=== PATIENT | male | born 1960 | race Hispanic/Latino ===

== ENCOUNTER 2021-06-23 07:40 | Inpatient (IN) | payer OTHER, SELFPAY ==
[2021-06-23 08:25] LABS: Absolute Lymphocytes (CBC) 0.3 K/uL (0.7-4.9); Basophils % 0.6 % (0-1.3); Hematocrit 40.3 % (39.6-49.0); Lymphocytes % 5.4 % (15.3-44.8); MPV 7.6 fL (7.6-11.3); RBC Red Blood Cell Count 4.44 M/uL (4.33-5.43)
[2021-06-23] MEDS ORDERED: NA CHLORIDE 0.9% 1,000 ML ONE ×2 (08:32→15:42)
[2021-06-23 08:44] LABS: BUN Blood Urea Nitrogen 14 mg/dL (7-18); Bicarbonate 24 mmol/L (21-32); Creatine Phosphokinase 74 U/L (39-308); Glucose Level 118 mg/dL (74-106); Magnesium 2.1 mg/dL (1.8-2.4); Potassium 3.6 mmol/L (3.5-5.1); Sodium Level 136 mmol/L (136-145); Troponin (Emerg Dept Use Only) < 0.02 ng/mL (0.0-0.045)
--- NOTE | 2021-06-23 08:56 | RAD REPORT ---
EXAM DESCRIPTION: CT - Head Brain Wo Cont - 06/23/2021 8:39 am CLINICAL HISTORY: near syncope COMPARISON: No comparisons TECHNIQUE: All CT scans are performed using dose optimization technique as appropriate and may inclu de automated exposure control or mA/KV adjustment according to patient size. FINDINGS: No intracranial hemorrhage, hydrocephalus or extra-axial fluid collection.No areas of brai n edema or evidence of midline shift. Trace maxillary sinus thickening. The calvarium is intact. IMPRESSION: No acute intracranial abnormality.
--- NOTE | 2021-06-23 09:18 | EDPHYS ---
Physician Documentation [facility] Name: Jin Rubio Age: 61 yrs Sex: Male : 1960 Arrival Date: 06/23/2021 Time: 07:43 Bed 20 Private MD: ED Physician Maulik Zamorano HPI: 06/23 08:08 This 61 yrs old Male presents to ER via Ambulatory with complaints of Near rn Syncope. 08:08 The patient has experienced near-syncope, almost passed out, felt dizzy, felt faint. rn Onset: The symptoms/episode began/occurred just prior to arrival. Duration: This was a single episode, that lasted 30 second(s). Context: the episode(s) was witnessed, by co-worker(s), occurred at work, occurred while the patient was standing, Just prior to the episode the patient experienced no apparent symptoms. Associated injury: The patient did not suffer any apparent associated injury. Associated signs and symptoms: Pertinent positives: diaphoresis, dizziness, lightheadedness, Pertinent negatives: abdominal pain, chest pain, confusion, headache, seizure, shortness of breath, vomiting. Current symptoms: Currently, the patient is not experiencing any symptoms. The patient has not experienced similar symptoms in the past. The patient has not recently seen a physician. Patient reports was standing at work prior to arrival, felt dizzy and lightheaded, almost passed out. Did not have syncopal episode. Denies any pain to chest or abdomen prior to episode. Lasted less than 30 seconds, went to the medical at work and was checked out, normal vital signs and symptoms resolved. Currently asymptomatic. Denies any chronic medical problems. Nobody in family with pacemaker. Is an occasional smoker. Reports decreased appetite and feeling dehydrated over the last few days but denies any fever or loss of taste and smell or cough.. Historical: - Allergies: 07:53 Aspirin; jl7 - Home Meds: 07:53 None [Active]; jl7 - PMHx: 07:53 None; jl7 - PSHx: 07:53 None; jl7 - Immunization history:: Adult Immunizations not up to date, Client reports having NOT received the Covid vaccine. - Social history:: Smoking status: Patient denies any tobacco usage or history of. - Family history:: not pertinent. - Hospitalizations: : No recent hospitalization is reported. - Code Status:: Full code. ROS: 08:08 Constitutional: Negative for fever, chills, and weight loss, Eyes: Negative for injury, rn pain, redness, and discharge, Neck: Negative for injury, pain, and swelling, Cardiovascular: Negative for chest pain, palpitations, and edema, Respiratory: Negative for shortness of breath, cough, wheezing, and pleuritic chest pain, Abdomen/GI: Negative for abdominal pain, nausea, vomiting, diarrhea, and constipation, Back: Negative for injury and pain, MS/Extremity: Negative for injury and deformity, Skin: Negative for injury, rash, and discoloration, Neuro: Negative for headache, numbness, tingling, and seizure. 08:08 All other systems are negative. Exam: 08:08 Constitutional: This is a well developed, well nourished patient who is awake, alert, rn and in no acute distress. Head/Face: Normocephalic, atraumatic. Eyes: Pupils equal round and reactive to light, extra-ocular motions intact. Lids and lashes normal. Conjunctiva and sclera are non-icteric and not injected. Cornea within normal limits. Periorbital areas with no swelling, redness, or edema. ENT: Dry mucous membranes Neck: Trachea midline, no masses palpated, and no cervical lymphadenopathy. Supple, full range of motion without nuchal rigidity, or vertebral point tenderness. No Meningismus. Cardiovascular: Regular rate and rhythm. No pulse deficits. Respiratory: Speaking full sentences, unlabored. No increased work of breathing, no retractions or nasal flaring. Abdomen/GI: Soft, non-tender Skin: Warm, dry MS/ Extremity: Pulses equal, no cyanosis. Neuro: Awake and alert, GCS 15, oriented to person, place, time, and situation. Cranial nerves II-XII grossly intact. Motor strength 5/5 in all extremities. Sensory grossly intact. Cerebellar exam normal. 08:08 ECG was reviewed by the Attending Physician. Vital Signs: 07:51 BP 109 / 71; Pulse 80; Resp 17; Temp 98.1; Pulse Ox 98% on R/A; Weight 108.86 kg; jl7 Height 5 ft. 10 in. (177.80 cm); Pain 0/10; 08:16 BP 106 / 62; Pulse 69; Resp 17; Temp 98.1; Pulse Ox 98% on R/A; kh1 09:41 BP 104 / 68; Pulse 71; Resp 20; Pulse Ox 98% on R/A; kh1 07:51 Body Mass Index 34.44 (108.86 kg, 177.80 cm) jl7 [place] Coma Score: 08:19 Eye Response: spontaneous(4). Verbal Response: oriented(5). Motor Response: obeys kh1 commands(6). Total: 15. MDM: 07:43 Patient medically screened. rn 08:18 ED course: Patient became diaphoretic in room, heart rate dropped into the 40s, rn slightly irregular with occasional PVC, but appeared to be sinus bradycardia. Repeat EKG obtained and symptoms and bradycardia had resolved. Patient back to baseline without symptoms.. 09:16 Differential Diagnosis: cardiac arrhythmia, emotional response, idiopathic syncope, rn vasovagal episode, dehydration, electrolyte disorder. Data reviewed: vital signs, nurses notes, lab test result(s), EKG. 09:17 Data interpreted: employee operations examiner: rate is 69 beats/min, rhythm is normal sinus rhythm, rn regular, with no ectopy, Interpretation: normal rate, normal rhythm, Pulse oximetry: on room air is 98 %. Interpretation: normal. Counseling: I had a detailed discussion with the patient and/or guardian regarding: the historical points, exam findings, and any diagnostic results supporting the discharge/admit diagnosis, lab results, radiology results, the need for further work-up and treatment in the hospital. Response to treatment: the patient's symptoms have markedly improved after treatment, and as a result, I will admit patient. Admission orders: after a detailed discussion of the patient's condition and case, the admit orders are written by me. 06/23 07:59 Order name: Basic Metabolic Panel; Complete Time: 08:56 rn 06/23 07:59 Order name: CBC with Diff; Complete Time: 09:35 rn 06/23 07:59 Order name: CPK; Complete Time: 08:56 rn 06/23 07:59 Order name: Magnesium; Complete Time: 08:56 rn 06/23 07:59 Order name: Troponin (emerg Dept Use Only); Complete Time: 08:56 rn 06/23 07:59 Order name: CT Head Brain wo Cont; Complete Time: 08:56 rn 06/23 08:42 Order name: Manual Differential; Complete Time: 09:35 EDMS 06/23 09:36 Order name: SARS-COV-2 RT PCR; Complete Time: 09:43 EDMS 06/23 14:38 Order name: Troponin I EDKY 06/23 14:50 Order name: Creatine Phosphokinase EDKY 06/23 14:50 Order name: Lipid Profile EDKY 06/23 14:50 Order name: T4 Free EDKY 06/23 14:50 Order name: Thyroid Stimulating Hormone EDKY 06/23 07:59 Order name: EKG; Complete Time: 08:00 rn 06/23 07:59 Order name: Cardiac monitoring; Complete Time: 08:08 rn 06/23 07:59 Order name: EKG - Nurse/Tech; Complete Time: 08:08 rn 06/23 07:59 Order name: IV Saline Lock; Complete Time: 08:08 rn 06/23 07:59 Order name: Labs collected and sent; Complete Time: 08:08 rn 06/23 07:59 Order name: O2 Per Protocol; Complete Time: 08:09 rn 06/23 07:59 Order name: O2 Sat Monitoring; Complete Time: 08:09 rn 06/23 10:34 Order name: Echo with Doppler EDKY 06/23 13:04 Order name: US EDKY EC:08 Rate is 65 beats/min. Rhythm is regular. QRS [place] is Normal. [place] interval is normal. QRS rn interval is normal. QT interval is normal. No Q waves. T waves are Normal. No ST changes noted. Clinical impression: Normal ECG. Interpreted by me. Reviewed by me. Administered Medications: 08:05 Drug: NS 0.9% 1000 ml Route: IV; Rate: 1000 ml; Site: right hand; [facility] Disposition Summary: 06/23/21 09:18 Hospitalization Ordered Hospitalization Status: Observation rn Provider: Cole Zamorano rn Location: Telemetry/MedSurg (observation) rn Condition: Stable rn Problem: new rn Symptoms: have improved rn Bed/Room Type: Standard rn Room Assignment: 415(06/23/21 16:13) ss Diagnosis - Syncope Near rn - Bradycardia, unspecified rn - SARS-associated coronavirus as the cause of diseases classified elsewhere rn Forms: - Medication Reconciliation Form rn - SBAR form rn Signatures: Dispatcher [employer] [facility] Zamorano, Maulik, Galilea Pugh MD, rn, RN RN ss Maris Javier RN RN jl7 Mary Colon [facility] Corrections: (The following items were deleted from the chart) 08:28 08:00 CORONAVIRUS+Z ordered. EDMS EDMS 16:13 09:18 nick shi
--- NOTE | 2021-06-23 09:18 | ER ---
Nurse's Notes [facility] Name: Jin Rubio Age: 61 yrs Sex: Male : 1960 Arrival Date: 06/23/2021 Time: 07:43 Bed 20 Private MD: Diagnosis: Syncope Near;Bradycardia, unspecified;SARS-associated coronavirus as the cause of diseases classified elsewhere Presentation: 06/23 07:51 Chief complaint: Patient states: Standing at morning meeting and almost passed out, jl7 on-site medical reports pt was diaphoretic, initial BP 90/60, BGL 117. Coronavirus screen: Vaccine status: Patient reports being unvaccinated. At this time, the client does not indicate any symptoms associated with coronavirus-19. Ebola Screen: No symptoms or risks identified at this time. Initial Sepsis Screen: Does the patient meet any 2 criteria? No. Patient's initial sepsis screen is negative. Does the patient have a suspected source of infection? No. Patient's initial sepsis screen is negative. Risk Assessment: Do you want to hurt yourself or someone else? Patient reports no desire to harm self or others. Onset of symptoms was June 23, 2021. 07:51 Method Of Arrival: Ambulatory [facility] 07:51 Acuity: LAKESHIA 3 jl7 Triage Assessment: 07:53 General: Appears in no apparent distress. uncomfortable, Behavior is calm, cooperative, jl7 appropriate for age. Pain: Denies pain. Historical: - Allergies: 07:53 Aspirin; jl7 - Home Meds: 07:53 None [Active]; jl7 - PMHx: 07:53 None; jl7 - PSHx: 07:53 None; jl7 - Immunization history:: Adult Immunizations not up to date, Client reports having NOT received the Covid vaccine. - Social history:: Smoking status: Patient denies any tobacco usage or history of. - Family history:: not pertinent. - Hospitalizations: : No recent hospitalization is reported. - Code Status:: Full code. Screenin:19 Abuse screen: Denies threats or abuse. Nutritional screening: No deficits noted. kh1 Tuberculosis screening: No symptoms or risk factors identified. Fall Risk IV access (20 points). Assessment: 08:19 General: Appears uncomfortable, Behavior is calm, cooperative, appropriate for age, kh1 Reports diaphoresis Denies. Cardiovascular: Reports diaphoresis, lightheadedness, Denies chest pain, shortness of breath, 09:41 Reassessment: Patient appears in no apparent distress at this time. No changes from 1 previously documented assessment. Patient and/or family updated on plan of care and expected duration. Pain level reassessed. Patient is alert, oriented x 3, equal unlabored respirations, skin warm/dry/pink. 11:12 Reassessment: Patient appears in no apparent distress at this time. No changes from [facility] previously documented assessment. Patient and/or family updated on plan of care and expected duration. Pain level reassessed. Patient is alert, oriented x 3, equal unlabored respirations, skin warm/dry/pink. awaiting admit orders. VSS. Vital Signs: 07:51 BP 109 / 71; Pulse 80; Resp 17; Temp 98.1; Pulse Ox 98% on R/A; Weight 108.86 kg; jl7 Height 5 ft. 10 in. (177.80 cm); Pain 0/10; 08:16 BP 106 / 62; Pulse 69; Resp 17; Temp 98.1; Pulse Ox 98% on R/A; kh1 09:41 BP 104 / 68; Pulse 71; Resp 20; Pulse Ox 98% on R/A; kh1 07:51 Body Mass Index 34.44 (108.86 kg, 177.80 cm) jl7 Vitals: 08:19 Cardiac Rhythm Assessment Regular Sinus rhythm Sinus beean. kh1 [place] Coma Score: 08:19 Eye Response: spontaneous(4). Verbal Response: oriented(5). Motor Response: obeys [facility] commands(6). Total: 15. ED Course: 07:43 Patient arrived in ED. mr 07:43 Maulik Zamorano MD is Attending Physician. rn 07:53 Triage completed. jl7 07:53 Arm band placed on right wrist. jl7 08:16 Mary Colon is Primary Nurse. kh1 08:18 Basic Metabolic Panel Sent. kh1 08:18 CPK Sent. kh1 08:18 CBC with Diff Sent. kh1 08:18 Magnesium Sent. kh1 08:18 Troponin (emerg Dept Use Only) Sent. kh1 08:19 Patient has correct armband on for positive identification. Bed in low position. Call [facility] light in reach. Side rails up X2. quality assurance monitor final on. Pulse ox on. NIBP on. 08:19 No provider procedures requiring assistance completed. Inserted saline lock: 20 gauge kh1 in right hand, using aseptic technique. Blood collected. 08:23 Basic Metabolic Panel Sent. kh1 08:23 CBC with Diff Sent. kh1 08:23 CPK Sent. kh1 08:23 Magnesium Sent. kh1 08:23 Troponin (emerg Dept Use Only) Sent. kh1 08:39 CT Head Brain wo Cont In Process Unspecified. EDMS 08:57 Manual Differential Sent. kh1 09:17 Oniel Cabezas DO is Hospitalizing Provider. rn 09:17 Cole Zamorano MD is Hospitalizing Provider. rn Administered Medications: 08:05 Drug: NS 0.9% 1000 ml Route: IV; Rate: 1000 ml; Site: right hand; [facility] Outcome: 09:18 Decision to Hospitalize by Provider. rn 17:09 Patient left the ED. Signatures: Dispatcher [employer] EDNC Brigette Duran mr Maulik Zamorano MD MD rn Smirch, Shelby, RN RN Maris Javier RN RN jl7 Harris, Kecia [facility] Corrections: (The following items were deleted from the chart) 08:28 08:18 CORONAVIRUS+MRBRYN drawn and sent. [facility] EDNC
[2021-06-23 09:31] LABS: Blood Morphology Comment NOT SEEN (NOT SEEN); Platelet Estimate INCR
[2021-06-23 11:30] VITALS: BMI 34.2
[2021-06-23] MEDS ORDERED: HYDROCODONE/APAP 5/325 MG TAB PO PRN (11:52)
[2021-06-23] MEDS ORDERED: ONDANSETRON 4 MG/2 ML VIAL IV PRN (11:56)
[2021-06-23] MEDS ORDERED: ACETAMINOPHEN 500 MG TAB PO PRN (11:56)
[2021-06-23] MEDS ORDERED: PNEUMOCOCCAL VACCINE 0.5 ML IMVAC ONE (12:00)
[2021-06-23] MEDS ORDERED: NA CHLORIDE 0.9% 1,000 ML IV SCH (12:00)
--- NOTE | 2021-06-23 12:09 | P.HP ---
Certification for Inpatient Patient admitted to: Observation With expected LOS: <2 Midnights Patient will require the following post-hospital care: None Practitioner: I am a practitioner with admitting privileges, knowledge of patient current condition, hospital course, and medical plan of care. Services: Services provided to patient in accordance with Admission requirements found in Title 42 Section 412.3 of the Code of Federal Regulations Patient History Date of Service: 06/23/21 Reason for admission: Near Syncope History of Present Illness: Patient is a 61-year-old male with no known past medical history who presents with complaint of near syncope onset today. Patient reported that he was at work standing when he suddenly started feeling dizzy and lightheaded. Patient reported that he almost passed out and had to quickly hold onto something. Patient indicated that the episode lasted for 30 seconds. Patient denies any other signs or symptoms. Symptoms are aggravated or relieved by nothing. Patient decided to present to the hospital for medical evaluation. While in the ER, patient had a similar episode as patient became diaphoretic and his heart rate plummeted into the 40s. Allergies aspirin Allergy (Verified 06/23/21 11:19) Anaphylaxis Home medications list reviewed: No - Past Medical/Surgical History Diabetic: No Past Medical History: Reviewed- Non-Contributory Past Surgical History: Reviewed- Non-Contributory - Family History Family History: Reviewed- Non-Contributory - Social History Smoking Status: Current every day smoker Smoking therapy provided: Yes Patient receptive to therapy: Yes Alcohol use: Yes CD- Drugs: No Place of Residence: Home Review of Systems General: Unremarkable Eyes: Unremarkable ENT: Unremarkable Respiratory: Unremarkable Cardiovascular: Light Headedness, Other Gastrointestinal: Unremarkable Genitourinary: Unremarkable Musculoskeletal: Unremarkable Integumentary: Unremarkable Neurological: Other (Dizziness, near syncope ) Lymphatics: Unremarkable Physical Examination - Physical Exam General: Alert, In no apparent distress, Oriented x3 HEENT: Atraumatic, PERRLA, Mucous membr. moist/pink, EOMI, Sclerae nonicteric Neck: Supple, 2+ carotid pulse no bruit, No LAD, Without JVD or thyroid abnormality Respiratory: Clear to auscultation bilaterally, Normal air movement Cardiovascular: No edema, Regular rate/rhythm, Normal S1 S2 Capillary refill: <2 Seconds Gastrointestinal: Normal bowel sounds, No tenderness Musculoskeletal: No clubbing, No tenderness Integumentary: No rashes, No breakdown Neurological: Normal gait, Normal speech, Normal strength at 5/5 x4 extr, Normal tone, Normal affect Lymphatics: No axilla or inguinal lymphadenopathy External genitalia: Deferred Rectal: Deferred - Studies Laboratory Data (last 24 hrs) 06/23/21 08:10: WBC 6.50, Hgb 13.6, Hct 40.3, Plt Count 604 H 06/23/21 08:10: Sodium 136, Potassium 3.6, BUN 14, Creatinine 0.75, Glucose 118 H, Magnesium 2.1 Assessment and Plan - Plan --Near syncope. Echocardiogram and carotid Doppler pending. Band Saw Filer consulted. Will get some orthostatic vital signs. Continue IV hydration. Will await further recommendations from statue carver. --Bradycardia. Patient became bradycardic in the ER. Echocardiogram pending to assess LV\valvular function and wall motions. Telemetry to monitor for any significant arrhythmia. Band Saw Filer on board. Further management per car diologist. --COVID-19 infection. Patient asymptomatic. Continue contact and droplet precautions. --Class I obesity. Likely secondary to excess calories intake. Patient counseled on diet and exercise therapy. --DVT prophylaxis with Lovenox subQ I have .had discussion about advanced directives with the patient during this hospital admission. Addressed code status and goals of care. Spent more than 30 minutes. Case discussed withpatient and nurse. The following document was completed using voice recognition software. This can produce broomcorn sorter errors that can at times significantly distort words and phrases. Please interpret any aspect of the note that is nonsensical in light of this fact. Discharge Plan: Home Plan to discharge in: 48 Hours - Advance Directives Does patient have a Living Will: No Does patient have a Durable POA for Healthcare: No - Code Status/Comfort Care Code Status Assessed: Yes Code Status: Full Code Physician Review: Patient Assessed, Agree with Above Assessment and Plan Critical Care: No
--- NOTE | 2021-06-23 13:03 | RAD REPORT ---
EXAM DESCRIPTION: - CP - 06/23/2021 12:42 pm CLINICAL HISTORY: Near Syncope Headache, drowsiness COMPARISON: No comparisons TECHNIQUE: Real-time sonographic evaluation of both carotid systems was performed. Doppler interroga tion was performed with waveform tracing bilaterally. FINDINGS: Normal high resistance waveforms are noted in both external carotid arteries. The common c arotid arteries and internal carotid arteries show normal low resistance waveforms. Small amount of soft plaque is seen right carotid bulb. Peak systolic and end diastolic velocity valu es and the ICA/CCA ratios are in the non-hemodynamically significant range. Antegrade flow seen in both vertebral arteries. IMPRESSION: Small amount soft plaque right carotid bulb. No evidence of a hemodynamically significant stenosis.
[2021-06-23 14:40] LABS: Thyroid Stimulating Hormone 0.221 uIU/mL (0.360-3.740)
--- NOTE | 2021-06-23 16:15 | ECHO ---
HEIGHT: 5 ft 10 in WEIGHT: 239 lb 15.923 oz DATE OF STUDY: 06/23/[address]: Matthew Atkinson 2-DIMENSIONAL: YES M.MODE: YES DOPPLER: YES COLOR FLOW: YES TDS: NO PORTABLE: NO DEFINITY: NO BUBBLE STUDY: NO DIAGNOSIS: NEAR SYNCOPE, BRADYCARDIA CARDIAC HISTORY: CATHERIZATION: NO SURGERY: NO PROSTHETIC VALVE: NO PACEMAKER: NO MEASUREMENTS (cm) DIASTOLIC (NORMALS) SYSTOLIC (NORMALS) IVSd 1.2 (0.6-1.2) LA Diam 3.4 (1.9-4.0) LVEF 66% LVIDd 5.8 (3.5-5.7) LVIDs 3.7 (2.0-3.5) %FS 37% LVPWd 1.3 (0.6-1.2) Ao Diam 3.2 (2.0-3.7) 2 DIMENSIONAL ASSESSMENT: RIGHT ATRIUM: NORMAL LEFT ATRIUM: NORMAL RIGHT VENTRICLE: NORMAL LEFT VENTRICLE: NORMAL TRICUSPID VALVE: NORMAL MITRAL VALVE: NORMAL PULMONIC VALVE: NORMAL AORTIC VALVE: NORMAL PERICARDIAL EFFUSION: NONE AORTIC ROOT: NORMAL LEFT VENTRICULAR WALL MOTION: NORMAL DOPPLER/COLOR FLOW: NORMAL COMMENTS: NORMAL 2D ECHOCARDIOGRAM WITH DOPPLER. NO WALL MOTION ABNORMALITY. NO EFFUSION. TECHNOLOGIST: Hilda HOLLAND
--- NOTE | 2021-06-23 17:25 | RAD REPORT ---
EXAM DESCRIPTION: RAD - Chest Single View - 06/23/2021 5:12 pm CLINICAL HISTORY: cough, near-syncope. COVID+ Chest pain. COMPARISON: No comparisons FINDINGS: Portable technique limits examination quality. Small opacity seen in the lateral right upper lobe suspicious for developing pneumonia. The heart is upper limit normal in size. No displaced fractures.
[2021-06-23 22:51] LABS: C-Reactive Protein 31.3 mg/L (<3.00); Ferritin 628.5 ng/mL (26-388)
[2021-06-24 00:43] VITALS: O2SAT 97
[2021-06-24 06:45] VITALS: BP 138/83; TEMP 97
--- NOTE | 2021-06-24 08:44 | P.DS ---
Admission Date: 06/23/21 Discharge Date: 06/24/21 Disposition: ROUTINE DISCHARGE Discharge Condition: GOOD Reason for Admission: Near Syncope Consultations: Cardiology - Dr. Jett Procedures: CXR (06/23): Small opacity seen in the lateral right upper lobe suspicious for developing pneumonia. The heart is upper limit normal in size. No displaced fractures. Carotid artery ultrasound (06/23): IMPRESSION: Small amount soft plaque right carotid bulb. No evidence of a hemodynamically significant stenosis. CT head (06/23): FINDINGS: No intracranial hemorrhage, hydrocephalus or extra-axial fluid collection.No areas of brain edema or evidence of midline shift. Trace maxillary sinus thickening. The calvarium is intact. IMPRESSION: No acute intracranial abnormality. Echo (06/23): normal 2D echo with doppler. no wall motion abnormality. no effusion. Problem List Near syncope secondary to dehydration Bradycardia COVID-19+ Obese Brief History of Present Illness: 61-year-old male with no known past medical history who presents with complaint of near syncope onset today. Patient reported that he was at work standing when he suddenly started feeling dizzy and lightheaded. Patient reported that he almost passed out and had to quickly hold onto something. Patient indicated that the episode lasted for 30 seconds. Patient denies any other signs or symptoms. Symptoms are aggravated or relieved by nothing. Patient decided to present to the hospital for medical evaluation. While in the ER, patient had a similar episode as patient became diaphoretic and his heart rate plummeted into the 40s. Hospital Course: Patient was treated with IV fluids. He was monitored on telemetry without any abnormal events. Troponins were trended and negative. Echocardiogram was obtained and WNL. Cardiology was consulted and felt to further inpatient evaluation was needed at this time. Patient's symptoms were consistent with dehydration from profuse sweating at work and COVID-19 infection. On day of discharge he felt significantly better, had no recurrent episodes, remained afebrile, did not require oxygen, and was asking to be discharged home. Follow up with PCP in 3-5 days. Vital Signs/Physical Exam: Temp Pulse Resp BP Pulse Ox 97 F 83 18 138/83 99 06/24/21 04:00 06/24/21 04:00 06/24/21 04:00 06/24/21 04:00 06/24/21 04:00 General: Alert, In no apparent distress, Oriented x3 HEENT: Mucous membr. moist/pink, Sclerae nonicteric Neck: Supple Respiratory: Clear to auscultation bilaterally, Normal air movement Cardiovascular: No edema, Regular rate/rhythm Gastrointestinal: Soft and benign, No tenderness Musculoskeletal: No tenderness Integumentary: No rashes, No significant lesion Neurological: Normal speech, Normal affect Laboratory Data at Discharge: WBC 6.50 K/uL (4.3-10.9) 06/23/21 08:10 Hgb 13.6 g/dL (13.6-17.9) 06/23/21 08:10 Hct 40.3 % (39.6-49.0) 06/23/21 08:10 Plt Count 604 K/uL (152-406) H 06/23/21 08:10 Sodium 136 mmol/L (136-145) 06/23/21 08:10 Potassium 3.6 mmol/L (3.5-5.1) 06/23/21 08:10 BUN 14 mg/dL (7-18) 06/23/21 08:10 Creatinine 0.75 mg/dL (0.55-1.3) 06/23/21 08:10 Glucose 118 mg/dL (74-106) H 06/23/21 08:10 Magnesium 2.1 mg/dL (1.8-2.4) 06/23/21 08:10 Troponin I < 0.02 ng/mL (0.0-0.045) 06/23/21 19:11 Triglycerides 68 mg/dL (<150) 06/23/21 13:17 Cholesterol 71 mg/dL (<200) 06/23/21 13:17 HDL Cholesterol 19 mg/dL (40-60) L 06/23/21 13:17 Cholesterol/HDL Ratio 3.74 06/23/21 13:17 Home Medications: NK [No Home Meds] 06/23/21 Physician Discharge Instructions: You were found to be COVID-19 positive. Your symptoms are likely due to dehydration and possibly exacerbated by COVID-19. You were treated with IV fluids. Cardiology was consulted, you had a normal echocardiogram, and your heart rhythm was monitored overnight without any events. Your heart enzymes (troponin) were normal. You are discharged home without any new medications. Recommend follow up with your PCP within 1 week. You are otherwise asymptomatic from COVID-19. You can take Vitamin D & C at home. If you become short of breath, recommend going to neared ER. Diet: Regular Activity: Ad franca Followup: NONE,NONE [Primary Care Provider] - Time spent managing pt's care (in minutes): 35
[2021-06-24] MEDS ORDERED: ASPIRIN 81 MG CHEWABLE TABLET PO SCH (09:00)
[2021-06-24] MEDS ORDERED: ENOXAPARIN 40 MG/0.4 ML SQ SCH (09:00)
--- NOTE | 2021-06-28 13:30 | CON ---
Date of Consultation: 06/23/2021 Reason For Consultation: Admitted to Dr. Zamorano on 06/23/2021 for presyncope. I saw the patient on 0 06/23/2021. History Of Present Illness: Mr. Rubio is a fairly healthy polly without any significant past medical h istory. He does not take any medicines. He has not had any surgery. He does not take any medicines at home. He does not have any allergies, except for aspirin. Came in with a syncopal episode after he got out of bed rather rapidly. Symptoms are certainly consistent with orthostatic hypotension an d dehydration. The patient has had some dizziness and lightheadedness, but did not have any chest pa in. Denied any nausea, vomiting, diaphoresis, PND, orthopnea, pedal edema. Denied any fever or chil ls. Past Medical History: Otherwise negative. Allergies: INCLUDE PENICILLIN. Review of Systems: Negative. Social History: Negative. Family History: Negative. Physical Examination: Vital Signs: All his vital signs were stable. He was afebrile. HEENT: Negative. Neck: Supple with no bruit. Chest: Clear to auscultation and percussion. Cardiac: Revealed a regular rhythm and rate. No murmurs, gallops, or rubs. Abdomen: Benign. Extremities: Revealed no clubbing, cyanosis, or edema. Diagnostic Data: Basically all unremarkable. His sugar was slightly elevated at 113. His TSH was l ow at 0.221. He was found to have COVID. He was positive for COVID. Impression And Plan: 1.Presyncope secondary to orthostatic hypotension. 2.Positive for COVID. 3.Low TSH consistent with hyperthyroidism. Echocardiogram which was done on Mr. Rubio showed a slig htly normal echo without any effusion or wall motion abnormalities. I am comfortable with him going home. He did have a carotid Doppler that showed some minor plaque in the right carotid bulb. I thin k Mr. Rubio should be on a statin. He should be observed for the COVID concern, well hydrated, and s ent home. I am comfortable with him going home and I will see him in the office as an outpatient if needed. This is not a cardiac issue. NB/MODL Voice ID: [id number] Report ID: [id number]
== END 2021-06-24 09:27 | disposition home or self-care (01) | DRG 640 ==
LOC: ER 07:40 → ERHOLD 10:29 → 4TH 17:32
PROVIDERS: ADMIT Hospitalist; ATTEND Hospitalist
DX: E86.0 Dehydration (principal); U07.1 COVID-19; R55 Syncope and collapse; R00.1 Bradycardia, unspecified; E66.9 Obesity, unspecified; Z68.34 Body mass index [BMI] 34.0-34.9, adult; Z88.6 Allergy status to analgesic agent
CPT/HCPCS: 36415; 70450; 71045; 80048; 80061; 82550; 82728; 82947; 83036; 83735; 84439; 84443; 84484; 85025; 86140; 93005; 93306; 93880; 99284; J7030; U0003